=== PATIENT | female | born 2000 | race Caucasian/White ===

== ENCOUNTER 2019-01-14 13:09 | Outpatient (CLI) | payer OTHER ==
--- NOTE | 2019-01-14 15:05 | MRI ---
MRI BRAIN WITH AND WITHOUT IV CONTRAST: HISTORY: Frequent headaches. FINDINGS: Multiple foci of T2 prolongation are seen in the periventricular white matter, some of them in a maryellen kali of Andrew's fingers. Some of these lesions demonstrate postcontrast enhancement. No evidence of infarct, hemorrhage, mass, midline shift, or abnormal extraaxial fluid collections is seen. The ventricular size is normal and the basilar cisterns patent. IMPRESSION: Findings are consistent with multiple sclerosis, some of the lesions demonstrating active demyelinati on. POS: [facility]
[2019-01-14] MEDS ORDERED: Gadobenate Dimeglumine 529 MG/1 ML (20ML VIAL) ONE (16:00)
== END 2019-01-14 13:10 | disposition home or self-care (01) ==
LOC: BICMRI 13:09
PROVIDERS: ATTEND Nurse Practitioner Acute Care
DX: R51 Headache (principal); R90.82 White matter disease, unspecified
CPT/HCPCS: 70553; A9577